=== PATIENT | male | born 1955 | race Caucasian/White ===

== ENCOUNTER 2022-04-08 18:00 | Emergency (ER) | payer MEDICARE, BC ==
[~2022-04-08] VITALS: Ht 175.3 cm; Wt 96.4 kg
[2022-04-08 18:08] VITALS: BP 129/78
[2022-04-08] MEDS ORDERED: TETanus/Pertussis (Acell)/Diphther VAC/PF (Tdap-Adult) 0.5ml syringe IMVAC ONE (19:45)
[2022-04-08] MEDS ORDERED: CEPH-585 PO (20:25)
== END 2022-04-08 20:52 | disposition home or self-care (01) ==
LOC: ER 18:00
DX: S61.210A Laceration without foreign body of right index finger without damage to nail, initial encounter (principal); S67.21XA Crushing injury of right hand, initial encounter; Z79.2 Long term (current) use of antibiotics; X58.XXXA Exposure to other specified factors, initial encounter; Y93.89 Activity, other specified; Y92.89 Other specified places as the place of occurrence of the external cause; Y99.8 Other external cause status
CPT/HCPCS: 12002; 73130; 90471; 90715; 99283